=== PATIENT | male | born 1985 | race Caucasian/White ===

== ENCOUNTER 2017-05-26 01:23 | Emergency (ER) | payer OTHER ==
[~2017-05-26] VITALS: Ht 182.9 cm; Wt 155.4 kg
[~2017-05-26 01:23] MED LIST: FLEXERIL10 MG PO; MOTRIN800 MG PO; NAPROSYN500 MG PO; NARCAN4 MG NS; NOHOMEMEDS; PREDNISONE10 MG PO; TOBREX3.5 GM LEFT EYE; TYLENOL WITH C1 EACH PO; ULTRAM50 MG PO
[2017-05-26] MEDS ORDERED: KEFLEX500 MG PO (01:53)
[2017-05-26] MEDS ORDERED: BACTRIM,SEPT1 TABLET PO (01:53)
[2017-05-26 02:33] VITALS: BP 153/93
== END 2017-05-26 02:34 | disposition home or self-care (01) ==
LOC: EME 01:23
DX: L03.116 Cellulitis of left lower limb (principal); F32.9 Major depressive disorder, single episode, unspecified; Z86.14 Personal history of Methicillin resistant Staphylococcus aureus infection; F17.200 Nicotine dependence, unspecified, uncomplicated; F19.90 Other psychoactive substance use, unspecified, uncomplicated
CPT/HCPCS: 87070; 87075; 87077; 87186; 87205; 99281; 99284

== ENCOUNTER 2017-06-03 18:57 | Inpatient (IN) | payer OTHER ==
[~2017-06-03] VITALS: Ht 182.9 cm; Wt 153.5 kg
[~2017-06-03 18:57] MED LIST changes: +BACTRIM,SEPT1 TABLET PO; +KEFLEX500 MG PO
[2017-06-03 21:02] LABS: HEMATOCRIT 42.1 % (38.0-50.0); MCH 29.6 PG (29.0-34.0); MCHC 33.7 G/DL (30.0-36.0); MCV 87.9 FL (86-99); MEAN PLAT.VOLUME 10.7 uM^3 (9.0-12.4); PLATELET COUNT 192 K/uL (156-360); RBC DIS.WIDTH-CV 14.4 % (11.8-14.6); RBC DIS.WIDTH-SD 46.3 % (39-53); RED BLOOD COUNT 4.79 M/uL (4.00-5.50); WHITE BLOOD COUNT 18.9 K/uL (4.1-10.2)
[2017-06-03 21:11] LABS: CHLORIDE 98 mEq/L (99-109); POTASSIUM 3.5 mEq/L (3.7-5.4); SODIUM 134 mEq/L (136-147)
[2017-06-03 21:13] LABS: GLUCOSE 99 mg/dL (70-99)
[2017-06-03 21:14] LABS: ANION GAP 12 MEQ/L (2-14)
[2017-06-03 21:15] LABS: TOTAL BILIRUBIN 1.2 mg/dL (0.0-1.0)
[2017-06-03 21:16] LABS: ALKALINE PHOSPHATASE 55 IU/L (3-129)
[2017-06-03 21:17] LABS: GFR ESTIMATE (CALCULATED) > 59 mL/min/
[2017-06-03 21:18] LABS: UREA NITROGEN (BUN) 12 mg/dL (9-23)
[2017-06-03] MEDS ORDERED: DOXYCYCLINE MO100 MG PO (23:19)
[2017-06-04 02:00] VITALS: BP 138/80
[2017-06-04 03:53] VITALS: BP 143/81
[2017-06-04 07:13] LABS: EOSINOPHIL (%) 3.1 % (0-5); EOSINOPHIL COUNT 0.4 K/uL (0-0.3); HEMATOCRIT 39.4 % (38.0-50.0); IMMATURE GRANULOCYTE (%) 0.3 % (0.0-0.7); INSTRUMENT ABS NEUTROPHIL CT 9.7 K/uL; LYMPHOCYTE COUNT 1.3 K/uL (1.0-2.8); MCH 29.4 PG (29.0-34.0); MCHC 33.2 G/DL (30.0-36.0); MCV 88.3 FL (86-99); MEAN PLAT.VOLUME 10.8 uM^3 (9.0-12.4); MONOCYTE (%) 9.3 % (3-12); MONOCYTE COUNT 1.2 K/uL (0-0.8); NEUTROPHIL (%) 76.6 % (45-76); NEUTROPHIL COUNT 9.7 K/uL (1.8-6.4); PLATELET COUNT 147 K/uL (156-360); RBC DIS.WIDTH-CV 14.6 % (11.8-14.6); RBC DIS.WIDTH-SD 47.1 % (39-53); RED BLOOD COUNT 4.46 M/uL (4.00-5.50); WHITE BLOOD COUNT 12.7 K/uL (4.1-10.2)
[2017-06-04 07:39] LABS: ANION GAP 7 MEQ/L (2-14); CHLORIDE 104 MEQ/L (99-109); GFR ESTIMATE (CALCULATED) > 59 mL/min/; GLUCOSE 90 mg/dL (70-99); POTASSIUM 3.7 MEQ/L (3.7-5.4); SAMPLE HEMOLYSIS CHECK 0; SAMPLE ICTERIC CHECK 0; SAMPLE LIPEMIA CHECK 0; SODIUM 137 MEQ/L (136-147); UREA NITROGEN (BUN) 10 mg/dL (9-23)
[2017-06-04 08:30] VITALS: BP 151/88
[2017-06-04 16:03] VITALS: BP 134/88
[2017-06-05] VITALS: BP 137/82
[2017-06-05 07:03] LABS: MCH 29.4 PG (29.0-34.0); MCHC 32.9 G/DL (30.0-36.0); MCV 89.4 FL (86-99); MEAN PLAT.VOLUME 11.1 uM^3 (9.0-12.4); PLATELET COUNT 153 K/uL (156-360); RBC DIS.WIDTH-CV 14.6 % (11.8-14.6); RBC DIS.WIDTH-SD 47.5 % (39-53); RED BLOOD COUNT 4.25 M/uL (4.00-5.50); WHITE BLOOD COUNT 10.9 K/uL (4.1-10.2)
[2017-06-05 07:33] LABS: ANION GAP 5 MEQ/L (2-14); CHLORIDE 107 MEQ/L (99-109); GFR ESTIMATE (CALCULATED) > 59 mL/min/; GLUCOSE 82 mg/dL (70-99); POTASSIUM 4.2 MEQ/L (3.7-5.4); SAMPLE HEMOLYSIS CHECK 0; SAMPLE ICTERIC CHECK 0; SAMPLE LIPEMIA CHECK 0; SODIUM 140 MEQ/L (136-147); UREA NITROGEN (BUN) 6 mg/dL (9-23)
[2017-06-05 08:02] VITALS: BP 137/91
[2017-06-05 16:00] VITALS: BP 156/94
[2017-06-05 23:31] VITALS: BP 139/90
[2017-06-06 08:01] VITALS: BP 131/90
[2017-06-06 15:58] VITALS: BP 140/96
[2017-06-06 23:49] VITALS: BP 163/87
[2017-06-07 07:52] VITALS: BP 134/84
[2017-06-07] MEDS ORDERED: HYDROCODON-ACE1 EAC7 PO (09:55)
[2017-06-07] MEDS ORDERED: CLEOCIN300 MG PO (10:00)
== END 2017-06-07 11:00 | disposition home or self-care (01) | DRG 603 ==
LOC: EME 18:57 → RME 18:57 → 5SOUTH 23:47 → EDOF 23:47 → ENRESERV 23:51 → 5SOUTH 06-04 01:43
PROVIDERS: Hospitalist; Internal Medicine; Nurse Practitioner Family; Physician Assistant Medical
PROC: 0H9EXZZ Drainage of Left Lower Arm Skin, External Approach (ICD-10-PCS; principal; 2017-06-03)
DX: L03.114 Cellulitis of left upper limb (principal); L02.414 Cutaneous abscess of left upper limb; F11.10 Opioid abuse, uncomplicated; F17.210 Nicotine dependence, cigarettes, uncomplicated; Z86.14 Personal history of Methicillin resistant Staphylococcus aureus infection; S81.802A Unspecified open wound, left lower leg, initial encounter; S81.001A Unspecified open wound, right knee, initial encounter; X58.XXXA Exposure to other specified factors, initial encounter
CPT/HCPCS: 73080; 80048; 80053; 80202; 82565; 85025; 85027; 86803; 87040; 93971; 99281; 99284; A6021; J1650; J1885; J3370; J7030; J7040; S0030